=== PATIENT | female | born 1965 | race Caucasian/White ===

== ENCOUNTER → 2018-12-05 | Outpatient (CLI) | payer OTHER ==
--- NOTE | 2018-12-06 08:36 | REPMRS ---
Patient History The patient states she had a clinical breast exam in 11/29 Patient is postmenopausal. Family history of breast cancer at age 50 or over in maternal aunt, colorectal cancer at age 50 or over in maternal grandfather. Implants in both breasts, 2004. Taking estrogen for 6 years. Digital Woman Screen Mammo: December 05, 2018 - Exam #: [id number] Bilateral MLO, CC, CCID, and MLOID view(s) were taken. Technologist: Deborah Crawford, Technologist Prior study comparison: 2016, bilateral digital mammo screening bilat, performed at [facility]. February 20, 2013, bilateral digital woman screen mammo, performed at [facility]. December 10, 2011, bilateral digital woman screen mammo, performed at [facility]. FINDINGS: There are scattered fibroglandular densities. The visualized implant margins are smooth. Breast parenchymal density pattern is essentially symmetric. No dominant mass, clustered microcalcification, or architectural distortion is evident on either side. 3-D tomosynthesis shows no additional findings. No significant changes when compared with prior studies. Assessment: BI-RADS/ACR category 2 mammogram. Benign Findings. Recommendation Routine screening mammogram of both breasts in 1 year (for women over age 40). This patient's Lifetime Breast Cancer RIsk is estimated at 8.9 %. This mammogram was interpreted with the aid of an FDA-approved computer-aided dectection system. Electronically Signed By: Jaspal Cueto MD 12/06/18 0836
--- NOTE | 2018-12-07 15:33 | DEXA ---
AP SPINE L1 - L4 1.045 -1.2 -0.4 LT FEMUR TOTAL 0.908 -0.8 -0.1 LT NECK 0.908 -0.9 0.1 RT FEMUR TOTAL 0.863 -1.2 -0.5 RT NECK 0.869 -1.2 -0.2 TOTAL BODY TOTAL OTHER COMMENTS: Normal bone densitometry of the left hip. There is low bone density of the spine. There is low bone density of the right hip. The density of the spine has increased 3.4% since the initial exam on 02/04/2004. The spine density has decreased 6.0% since the most recent exam on 12/02/2017. The density of the left hip has decreased 0.3% since the initial exam on 02/04/2004. The density of the left hip has decreased 0.1% since the most recent exam on 12/02/2017. The density of the right hip has increased 1.6% since the initial exam on 02/04/2004. The density of the right hip has increased 0.3% since the most recent exam on 12/02/2017. FOLLOW-UP: Recommendation for the next bone density exam: 2 years. JAS
== END ==
LOC: M WHC 13:27
PROVIDERS: ATTEND Nurse Practitioner
DX: Z12.31 Encounter for screening mammogram for malignant neoplasm of breast (principal); M85.80 Other specified disorders of bone density and structure, unspecified site

== ENCOUNTER → 2020-01-23 | Outpatient (CLI) | payer OTHER ==
--- NOTE | 2020-01-23 10:07 | REP ---
CT LEFT WRIST: CT left wrist performed in the axial plane with sagittal and coronal reconstruction images. There is a nondisplaced fracture of the dorsal aspect of the distal radius. The adjacent ulna is intact. Carpal bones are intact. There is no dislocation. There is associated soft tissue edema in this region. There is an overlying cast. IMPRESSION: Nondisplaced fracture dorsal aspect of the distal radius. No other evidence of fracture or dislocation. Electronically Signed by Isaiah Mullen MD 01/23/2020 10:42 A
== END ==
LOC: M RAD 09:23
PROVIDERS: ATTEND Orthopaedic Surgery Sports Medicine
DX: S52.592D Other fractures of lower end of left radius, subsequent encounter for closed fracture with routine healing (principal); X58.XXXD Exposure to other specified factors, subsequent encounter

== ENCOUNTER → 2021-01-14 | Outpatient (CLI) | payer OTHER ==
--- NOTE | 2021-01-14 12:39 | REPMRS ---
Patient History The patient states she had a clinical breast exam in December 2020. Patient is postmenopausal. Family history of breast cancer at age 50 or over in maternal aunt, colorectal cancer at age 50 or over in maternal grandfather. Explants from both breasts, October 2019. Implants in both breasts, 2004. Taking estrogen for 6 years. 3D TOMOSYNTHESIS WAS PERFORMED. The [facility] lifetime risk for breast cancer is 8.4%. Volpara breast density b. Digital Woman Screen Mammo: January 14, 2021 - Exam #: [id number] Bilateral CC and MLO view(s) were taken. Technologist: RT Oliver Prior study comparison: December 05, 2018, bilateral digital woman screen mammo performed at [facility]. 2017, bilateral digital mammo screening bilat, performed at [facility]. FINDINGS: There are scattered fibroglandular densities. There has been no change in the appearance of the mammogram from the prior studies. There is a mild amount of residual fibroglandular tissue which is fairly symmetric. There is no interval development of dominant mass, architectural distortion, or clustered microcalcification suggestive of malignancy. Assessment: BI-RADS/ACR category 1 mammogram. Negative Mammogram. Recommendation Routine screening mammogram in 1 year (for women over age 40). This mammogram was interpreted with the aid of an FDA-approved computer-aided dectection system. Electronically Signed By: Isaiah Mullen MD 01/14/21 0989
== END ==
LOC: M WHC 08:18
PROVIDERS: ATTEND Nurse Practitioner
DX: Z12.31 Encounter for screening mammogram for malignant neoplasm of breast (principal); Z80.3 Family history of malignant neoplasm of breast; Z80.0 Family history of malignant neoplasm of digestive organs

== ENCOUNTER → 2021-07-24 | Outpatient (CLI) | payer OTHER ==
--- NOTE | 2021-07-24 15:04 | REP ---
INDICATION: PAIN COMPARISON: None. TECHNIQUE: AP, lateral, bilateral oblique and sunrise views. FINDINGS: The osseous structures and joint spaces are intact and normal/age-appropriate. There is no evidence for acute fracture or dislocation. No joint effusion is appreciated. Surrounding soft tissues are unremarkable. No subcutaneous emphysema or radiodense foreign body. IMPRESSION: Normal age-appropriate left knee examination. No acute fracture or dislocation. <Electronically signed by Huy Breen > 07/24/21 [id number]
== END ==
LOC: M WUC 14:07
PROVIDERS: ATTEND Family Medicine
DX: M25.562 Pain in left knee (principal)

== ENCOUNTER → 2022-04-24 | Outpatient (CLI) | payer OTHER | LOC: M WHC 06:42 | PROVIDERS: ATTEND Family Medicine | DX: Z12.31 Encounter for screening mammogram for malignant neoplasm of breast (principal); Z13.820 Encounter for screening for osteoporosis; Z80.3 Family history of malignant neoplasm of breast; Z98.82 Breast implant status; Z80.0 Family history of malignant neoplasm of digestive organs ==

== ENCOUNTER → 2022-08-11 | Outpatient (CLI) | payer OTHER | LOC: M WHC 08:01 | PROVIDERS: ATTEND Family Medicine | DX: Z13.820 Encounter for screening for osteoporosis (principal); M85.851 Other specified disorders of bone density and structure, right thigh; M85.852 Other specified disorders of bone density and structure, left thigh; M85.88 Other specified disorders of bone density and structure, other site ==

== ENCOUNTER → 2023-08-27 | Outpatient (CLI) | payer OTHER ==
[~2023-08-27] MED LIST: PROHANCE 279.3MG/ML 15ML VIAL ONE
== END ==
LOC: M PLAIMG 07:18
PROVIDERS: ATTEND Otolaryngology
DX: H91.93 Unspecified hearing loss, bilateral (principal)
CPT/HCPCS: 70553; A9576

== ENCOUNTER 2024-01-05 06:28 | Day surgery (SDC) | payer OTHER ==
[~2024-01-05] VITALS: Ht 165.1 cm; Wt 69.9 kg
[~2024-01-05 06:28] MED LIST changes: +LEXA1TAB PO; +MAGN200T PO; +OYST500C PO; -PROHANCE 279.3MG/ML 15ML VIAL ONE; +THERTAB52 PO; +VITA100093 PO; +[UNRECOGNIZED DRUG - CODE] VA
[2024-01-05] MEDS: NS 1,000 ML IV ONE (07:22)
[2024-01-05] MEDS ORDERED: LIDOCAINE 2% 100MG/5ML SDV (FOR ANES.) As Ordered ONE (07:26)
[2024-01-05] MEDS ORDERED: propofoL 200 MG/20 ML VIAL As Ordered ONE (07:26)
[2024-01-05 07:48] VITALS: TEMP 96.4
[2024-01-05 08:10] VITALS: BP 144/79; O2SAT 98
== END 2024-01-05 08:20 | disposition home or self-care (01) ==
LOC: M OPP 06:28
PROVIDERS: ATTEND Surgery
DX: Z12.11 Encounter for screening for malignant neoplasm of colon (principal); Z12.12 Encounter for screening for malignant neoplasm of rectum; K64.0 First degree hemorrhoids; L30.9 Dermatitis, unspecified; Z90.710 Acquired absence of both cervix and uterus; Z79.899 Other long term (current) drug therapy; F41.9 Anxiety disorder, unspecified; Z98.51 Tubal ligation status

== ENCOUNTER → 2024-01-14 | Outpatient (CLI) | payer OTHER | LOC: M WHC 12:05 | PROVIDERS: ATTEND Registered Nurse | DX: Z12.31 Encounter for screening mammogram for malignant neoplasm of breast (principal) ==

== ENCOUNTER → 2025-01-15 | Outpatient (CLI) | payer OTHER | LOC: M WHC 13:12 | PROVIDERS: ATTEND Nurse Practitioner Family | DX: Z12.31 Encounter for screening mammogram for malignant neoplasm of breast (principal); R92.313 Mammographic fatty tissue density, bilateral breasts ==